=== PATIENT | male | born 1955 | race Caucasian/White ===

== ENCOUNTER 2019-09-27 03:38 | Inpatient (IN) | payer OTHER, MEDICAID, SELFPAY ==
[2019-09-27] VITALS (7 sets, daily range): BP systolic 116–150
[~2019-09-27] VITALS: Ht 182.9 cm; Wt 88.0 kg
[2019-09-27] MEDS ORDERED: methylPREDNISolone SOD SUCC/PF 62.5 MG/ML VIAL IVP ONE (04:00)
[2019-09-27] MEDS ORDERED: IPRATROPIUM/ALBUTEROL SULFATE 3 ML AMPUL.NEB (DUONEB) INH ONE (04:00)
[2019-09-27] MEDS ORDERED: ALBUTEROL SULFATE 0.083% 2.5 MG/3 ML VIAL.NEB INH ONE (04:00)
[2019-09-27] MEDS ORDERED: NACL 0.9% 1,000 ML IV ONE (04:00)
[2019-09-27 04:15] LABS: BASOPHILS # (AUTO) 0.1 K/uL (0.0-0.2); BASOPHILS % (AUTO) 0.5 % (0.0-2.0); EOSINOPHILS # (AUTO) 0.2 K/uL (0.0-0.4); EOSINOPHILS % (AUTO) 2.1 % (0.0-4.0); HEMATOCRIT 45.9 % (36-54); HEMOGLOBIN 15.7 g/dL (14.0-18.0); LYMPHOCYTES # (AUTO) 2.3 K/uL (1.0-5.5); LYMPHOCYTES % (AUTO) 21.1 % (20.5-51.5); MEAN CORPUSCULAR HEMOGLOBIN 30 pg (27-31); MEAN CORPUSCULAR HGB CONC 34 % (32-36); MEAN CORPUSCULAR VOLUME 89 fL (79.0-98.0); MONOCYTES # (AUTO) 1.5 K/uL (0.0-1.0); MONOCYTES % (AUTO) 13.9 % (1.7-9.3); NEUTROPHILS # (AUTO) 6.8 K/uL (1.8-7.7); NEUTROPHILS % (AUTO) 62.4 % (40.0-70.0); PLATELET COUNT (AUTO) 281 K/uL (130-430); RED BLOOD CELL COUNT(AUTO) 5.17 MIL/uL (4.2-6.2); RED CELL DISTRIBUTION WIDTH 13.4 % (9.0-15.0); WHITE BLOOD COUNT (AUTO) 10.9 K/uL (4.8-10.8)
[2019-09-27 04:25] LABS: CALCIUM 8.9 mg/dL (8.4-11.0); CREATININE 1.06 mg/dL (0.55-1.30); POTASSIUM 3.8 mmol/L (3.5-5.1)
[2019-09-27 04:31] LABS: ALBUMIN 3.6 g/dL (3.4-4.8); TOTAL BILIRUBIN 0.6 mg/dL (0.0-1.0)
[2019-09-27] MEDS ORDERED: AZITHROMYCIN 500 MG in NS 250 ML IV SCH (05:00)
[2019-09-27] MEDS ORDERED: IPRATROPIUM/ALBUTEROL SULFATE 3 ML AMPUL.NEB (DUONEB) INH PRN (05:00)
[2019-09-27] MEDS ORDERED: [UNRECOGNIZED DRUG - CODE] PO (05:27)
[2019-09-27] MEDS: NACL 0.9% 1,000 ML IV SCH ×2 (05:39→20:06)
[2019-09-27] MEDS ORDERED: AZITHROMYCIN 500 MG/VIAL (ZITHROMAX) IV ONE (06:01)
[2019-09-27] MEDS: IPRATROPIUM/ALBUTEROL SULFATE 3 ML AMPUL.NEB (DUONEB) INH SCH ×3 (07:37→19:30)
[2019-09-27] MEDS ORDERED: oxyCODONE HCL 5 MG TABLET PO SCH (13:45)
[2019-09-27] MEDS: FAMOTIDINE 20 MG TABLET PO SCH ×2 (13:45→20:12)
[2019-09-27] MEDS ORDERED: DECADRON 4 MG TABLET PO SCH (13:45)
[2019-09-27] MEDS: CHOLECALCIFEROL (VITAMIN D3) 2,000 UNIT TABLET PO SCH (13:45)
[2019-09-27] MEDS ORDERED: MAGNESIUM OXIDE 400 MG TABLET PO ONE (13:45)
[2019-09-27] MEDS: DOXYCYCLINE HYCLATE 100 MG CAPSULE PO SCH ×2 (13:45→20:14)
[2019-09-27] MEDS: ASCORBIC ACID 500 MG TABLET PO SCH ×2 (17:51→20:06)
[2019-09-27] MEDS: HEPARIN SODIUM,PORCINE 5000 UNITS/ML VIAL SUBCUT SCH ×2 (17:52→20:15)
[2019-09-27] MEDS: MAGNESIUM OXIDE 400 MG TABLET PO SCH (20:12)
[2019-09-27] MEDS: OXYCODONE 15 MG PO SCH (21:00)
[2019-09-27] MEDS: HYDROcodone/ACETAMIN 10-325 MG TAB PO PRN (23:06)
[2019-09-28] VITALS: BP_SYST 110
[2019-09-28] MEDS: IPRATROPIUM/ALBUTEROL SULFATE 3 ML AMPUL.NEB (DUONEB) INH SCH ×4 (01:10→19:30)
[2019-09-28 07:29] LABS: CALCIUM 8.1 mg/dL (8.4-11.0); CREATININE 0.99 mg/dL (0.55-1.30); POTASSIUM 4.2 mmol/L (3.5-5.1)
[2019-09-28 07:37] LABS: BASOPHILS % (AUTO) 0.2 % (0.0-2.0); HEMATOCRIT 39.9 % (36-54); HEMOGLOBIN 13.3 g/dL (14.0-18.0); LYMPHOCYTES # (AUTO) 1.6 K/uL (1.0-5.5); LYMPHOCYTES % (AUTO) 16.1 % (20.5-51.5); MEAN CORPUSCULAR HEMOGLOBIN 30 pg (27-31); MEAN CORPUSCULAR HGB CONC 33 % (32-36); MEAN CORPUSCULAR VOLUME 90 fL (79.0-98.0); MONOCYTES # (AUTO) 1.2 K/uL (0.0-1.0); MONOCYTES % (AUTO) 12.1 % (1.7-9.3); NEUTROPHILS # (AUTO) 7.3 K/uL (1.8-7.7); NEUTROPHILS % (AUTO) 71.6 % (40.0-70.0); PLATELET COUNT (AUTO) 247 K/uL (130-430); RED BLOOD CELL COUNT(AUTO) 4.42 MIL/uL (4.2-6.2); RED CELL DISTRIBUTION WIDTH 13.9 % (9.0-15.0); WHITE BLOOD COUNT (AUTO) 10.2 K/uL (4.8-10.8)
[2019-09-28 08:00] VITALS: BP_SYST 114
[2019-09-28] MEDS: HYDROcodone/ACETAMIN 10-325 MG TAB PO PRN (08:35)
[2019-09-28] MEDS: OXYCODONE 15 MG PO SCH ×2 (09:00→21:00)
[2019-09-28] MEDS: BUDESONIDE 0.5 MG/2 ML AMPUL.NEB INH SCH ×2 (09:30→19:45)
[2019-09-28] MEDS ORDERED: IPRATROPIUM/ALBUTEROL SULFATE 3 ML AMPUL.NEB (DUONEB) INH PRN (09:30)
[2019-09-28] MEDS: AZITHROMYCIN 500 MG in NS 250 ML IV SCH (09:46)
[2019-09-28] MEDS: DOXYCYCLINE HYCLATE 100 MG CAPSULE PO SCH ×2 (09:46→21:10)
[2019-09-28] MEDS: MAGNESIUM OXIDE 400 MG TABLET PO SCH ×2 (09:46→21:10)
[2019-09-28] MEDS: ASCORBIC ACID 500 MG TABLET PO SCH ×2 (09:46→21:10)
[2019-09-28] MEDS: CHOLECALCIFEROL (VITAMIN D3) 2,000 UNIT TABLET PO SCH (09:46)
[2019-09-28] MEDS: FAMOTIDINE 20 MG TABLET PO SCH ×2 (09:46→21:10)
[2019-09-28] MEDS: HEPARIN SODIUM,PORCINE 5000 UNITS/ML VIAL SUBCUT SCH ×2 (09:47→21:12)
[2019-09-28] MEDS ORDERED: methylPREDNISolone SOD SUCC 40 MG/ML VIAL IVP ONE (11:15)
[2019-09-28 11:37] VITALS: BP_SYST 105
[2019-09-28] MEDS: NACL 0.9% 1,000 ML IV SCH (14:17)
[2019-09-28 15:39] VITALS: BP_SYST 111
[2019-09-28 20:00] VITALS: BP_SYST 128
[2019-09-28] MEDS: methylPREDNISolone SOD SUCC 40 MG/ML VIAL IVP SCH (21:10)
[2019-09-29] MEDS: NACL 0.9% 1,000 ML IV SCH ×2 (00:30→16:00)
[2019-09-29] MEDS: IPRATROPIUM/ALBUTEROL SULFATE 3 ML AMPUL.NEB (DUONEB) INH SCH ×4 (01:27→19:20)
[2019-09-29 07:49] LABS: BASOPHILS % (AUTO) 0.4 % (0.0-2.0); HEMATOCRIT 39.6 % (36-54); HEMOGLOBIN 13.2 g/dL (14.0-18.0); LYMPHOCYTES # (AUTO) 1.5 K/uL (1.0-5.5); LYMPHOCYTES % (AUTO) 13.6 % (20.5-51.5); MEAN CORPUSCULAR HEMOGLOBIN 30 pg (27-31); MEAN CORPUSCULAR HGB CONC 33 % (32-36); MEAN CORPUSCULAR VOLUME 90 fL (79.0-98.0); MONOCYTES # (AUTO) 0.9 K/uL (0.0-1.0); MONOCYTES % (AUTO) 8.1 % (1.7-9.3); NEUTROPHILS # (AUTO) 8.5 K/uL (1.8-7.7); NEUTROPHILS % (AUTO) 77.9 % (40.0-70.0); PLATELET COUNT (AUTO) 242 K/uL (130-430); RED BLOOD CELL COUNT(AUTO) 4.39 MIL/uL (4.2-6.2); RED CELL DISTRIBUTION WIDTH 13.8 % (9.0-15.0); WHITE BLOOD COUNT (AUTO) 10.9 K/uL (4.8-10.8)
[2019-09-29 08:00] VITALS: BP_SYST 155
[2019-09-29 08:12] LABS: ALBUMIN 2.9 g/dL (3.4-4.8); CALCIUM 8.5 mg/dL (8.4-11.0); CREATININE 0.91 mg/dL (0.55-1.30); POTASSIUM 4.7 mmol/L (3.5-5.1); TOTAL BILIRUBIN 0.3 mg/dL (0.0-1.0)
[2019-09-29] MEDS: BUDESONIDE 0.5 MG/2 ML AMPUL.NEB INH SCH ×2 (08:14→19:35)
[2019-09-29] MEDS: OXYCODONE 15 MG PO SCH ×2 (09:00→20:36)
[2019-09-29] MEDS: AZITHROMYCIN 500 MG in NS 250 ML IV SCH (09:10)
[2019-09-29] MEDS: methylPREDNISolone SOD SUCC 40 MG/ML VIAL IVP SCH (09:10)
[2019-09-29] MEDS: MAGNESIUM OXIDE 400 MG TABLET PO SCH ×2 (09:10→20:36)
[2019-09-29] MEDS: FAMOTIDINE 20 MG TABLET PO SCH ×2 (09:10→20:37)
[2019-09-29] MEDS: ASCORBIC ACID 500 MG TABLET PO SCH ×2 (09:11→20:37)
[2019-09-29] MEDS: DOXYCYCLINE HYCLATE 100 MG CAPSULE PO SCH ×2 (09:11→20:37)
[2019-09-29] MEDS: CHOLECALCIFEROL (VITAMIN D3) 2,000 UNIT TABLET PO SCH (09:13)
[2019-09-29] MEDS: HEPARIN SODIUM,PORCINE 5000 UNITS/ML VIAL SUBCUT SCH ×2 (09:55→20:37)
[2019-09-29 12:00] VITALS: BP_SYST 148
[2019-09-29 16:00] VITALS: BP_SYST 150
[2019-09-29 20:00] VITALS: BP_SYST 127
[2019-09-29] MEDS: PREDNISONE 20 MG TABLET PO SCH (20:36)
[2019-09-29] MEDS: HYDROcodone/ACETAMIN 10-325 MG TAB PO PRN (20:38)
[2019-09-30] VITALS: BP_SYST 122
[2019-09-30] MEDS: IPRATROPIUM/ALBUTEROL SULFATE 3 ML AMPUL.NEB (DUONEB) INH SCH ×4 (01:12→19:30)
[2019-09-30] MEDS: BUDESONIDE 0.5 MG/2 ML AMPUL.NEB INH SCH ×2 (07:32→19:45)
[2019-09-30 08:00] VITALS: BP_SYST 119
[2019-09-30] MEDS: DOXYCYCLINE HYCLATE 100 MG CAPSULE PO SCH ×2 (08:16→21:00)
[2019-09-30] MEDS: FAMOTIDINE 20 MG TABLET PO SCH ×2 (08:16→21:00)
[2019-09-30] MEDS: MAGNESIUM OXIDE 400 MG TABLET PO SCH ×2 (08:16→21:00)
[2019-09-30] MEDS: CHOLECALCIFEROL (VITAMIN D3) 2,000 UNIT TABLET PO SCH (08:17)
[2019-09-30] MEDS: OXYCODONE 15 MG PO SCH ×2 (08:18→21:00)
[2019-09-30] MEDS: PREDNISONE 20 MG TABLET PO SCH ×2 (09:54→18:04)
[2019-09-30] MEDS: AZITHROMYCIN 500 MG in NS 250 ML IV SCH (09:54)
[2019-09-30] MEDS: ASCORBIC ACID 500 MG TABLET PO SCH ×2 (09:54→21:00)
[2019-09-30] MEDS: HEPARIN SODIUM,PORCINE 5000 UNITS/ML VIAL SUBCUT SCH ×2 (10:15→21:00)
[2019-09-30 12:00] VITALS: BP_SYST 155
[2019-09-30] MEDS ORDERED: DOXY100C2 PO (14:08)
[2019-09-30] MEDS ORDERED: BUDE0.5A INH (14:08)
[2019-09-30] MEDS ORDERED: VITD2000 PO (14:08)
[2019-09-30] MEDS ORDERED: ASCO500T20 PO (14:08)
[2019-09-30] MEDS ORDERED: MAGN400T10 PO (14:08)
[2019-09-30] MEDS ORDERED: PRED20TA PO (14:08)
[2019-09-30] MEDS ORDERED: FAMO20TA8 PO (14:08)
[2019-09-30] MEDS ORDERED: IPRA3AMP9 INH (14:08)
[2019-09-30 16:00] VITALS: BP_SYST 135
[2019-09-30] MEDS: HYDROcodone/ACETAMIN 10-325 MG TAB PO PRN (18:07)
[2019-09-30 20:00] VITALS: BP_SYST 105
[2019-10-01] VITALS: BP_SYST 104
[2019-10-01] MEDS: IPRATROPIUM/ALBUTEROL SULFATE 3 ML AMPUL.NEB (DUONEB) INH SCH ×3 (01:05→16:05)
[2019-10-01] MEDS: BUDESONIDE 0.5 MG/2 ML AMPUL.NEB INH SCH (08:07)
[2019-10-01] MEDS: PREDNISONE 20 MG TABLET PO SCH (08:21)
[2019-10-01] MEDS: MAGNESIUM OXIDE 400 MG TABLET PO SCH (08:22)
[2019-10-01] MEDS: DOXYCYCLINE HYCLATE 100 MG CAPSULE PO SCH (08:22)
[2019-10-01] MEDS: ASCORBIC ACID 500 MG TABLET PO SCH (08:22)
[2019-10-01] MEDS: CHOLECALCIFEROL (VITAMIN D3) 2,000 UNIT TABLET PO SCH (08:22)
[2019-10-01] MEDS: FAMOTIDINE 20 MG TABLET PO SCH (08:22)
[2019-10-01] MEDS: HYDROcodone/ACETAMIN 10-325 MG TAB PO PRN (08:23)
[2019-10-01 08:25] VITALS: BP_SYST 135
[2019-10-01] MEDS: OXYCODONE 15 MG PO SCH (08:25)
[2019-10-01] MEDS: HEPARIN SODIUM,PORCINE 5000 UNITS/ML VIAL SUBCUT SCH (08:26)
[2019-10-01] MEDS: AZITHROMYCIN 500 MG in NS 250 ML IV SCH (09:04)
[2019-10-01 12:01] VITALS: BP_SYST 126
[2019-10-01] MEDS ORDERED: PREDNISONE 20 MG TABLET PO SCH (15:00)
[2019-10-01 16:05] VITALS: BP_SYST 140
[2019-10-01 16:16] VITALS: BP_SYST 140
== END 2019-10-01 17:25 | disposition home health service (06) | DRG 189 ==
LOC: SED 03:38 → STU 04:57
PROVIDERS: ADMIT Internal Medicine; ATTEND Internal Medicine
DX: J96.21 Acute and chronic respiratory failure with hypoxia (principal); J44.1 Chronic obstructive pulmonary disease with (acute) exacerbation; J44.0 Chronic obstructive pulmonary disease with (acute) lower respiratory infection; J20.9 Acute bronchitis, unspecified; F41.9 Anxiety disorder, unspecified; G89.4 Chronic pain syndrome; Z87.891 Personal history of nicotine dependence; Z03.818 Encounter for observation for suspected exposure to other biological agents ruled out; Z88.0 Allergy status to penicillin; Z79.899 Other long term (current) drug therapy
CPT/HCPCS: 36415; 36600; 71045; 80048; 80053; 82803-TC; 83605; 85025; 87040-TC; 93005; 94640; 94760; 96361; 96365; 96375; 99291; G0378; J0456; J1030; J1644; J2930; J7030; J7050; J7512; J7613; J7626; J8540; U0003-CS